=== PATIENT | female | born 1955 | race Caucasian/White ===

== ENCOUNTER 2017-04-18 10:40 | Emergency (ER) | payer SELFPAY ==
[2017-04-18 10:57] VITALS: TEMP 98.1
--- NOTE | 2017-04-18 11:04 | EDPHY ---
General Narrative: CHIEF COMPLAINT: Fall, left knee pain HISTORY OF PRESENT ILLNESS: Patient was in her home today when she turned around and tripped over a vacuum boat cleaner. She landed on her left knee in a flexed position. Sudden onset of severe pain. Deformity to the knee cap. No numbness or tingling. No difficulty bending the knee but difficulty straightening it. No head strike or loss of consciousness. No pain anywhere else. The pain is 10/10. She arrives by EMS as she is unable to ambulate. No other associated complaints or modifying factors. REVIEW OF SYSTEMS: Ten systems reviewed and are negative unless otherwise noted in the HPI PAST MEDICAL HISTORY: Previous orthopedic concerns PAST SURGICAL HISTORY: Orthopedic laparoscopy remotely SOCIAL HISTORY: Nonsmoker. Lives here independently. FAMILY HISTORY: Noncontributory EXAMINATION General Appearance: Alert, no distress Head: normocephalic, atraumatic Eyes: Pupils equal and round, no conjunctival pallor or injection ENT, Mouth: Mucous membranes moist Neck: Normal inspection, supple, non-tender Respiratory: Lungs are clear to auscultation Cardiovascular: Regular rate and rhythm. No murmur. Pulses intact distally with symmetric DP and PT pulses. Gastrointestinal: Abdomen is soft and nontender Back: non-tender, no bony abnormalities Neurological: A&O, nonfocal, strength is symmetric in the limbs. Unable to test strength in extension of the left knee as she has no extension retained. Skin: Warm and dry, no rash. No punctures or lacerations. There is tenting of the skin of the left knee but a remains closed. Extremities: Significant tenderness of the left knee with obvious deformity of the patella. There is no deficit distally. Unable to straighten or engage the patellar tendon. Flexion retain. Neurovascular intact distal to the obvious injury deformity. No pain at the proximal fibula or medial leg. Psychiatric: Mood and affect normal DIFFERENTIAL DIAGNOSES: Including but not limited to patellar fracture, patellar tendon rupture, femur fracture, tibial fracture, fibula fracture MDM: 10:50 a.m. Fall with obvious deformity of the patella and suspected patellar tendon rupture. Neurovascular intact. X-ray pending. 11:55 a.m. I have discussed the x-ray with Dr. Rizo. He has reviewed the film. He recommends straight leg immobilizer and crutches. He would like the patient to be seen in his office tomorrow or Sunday. The patient is agreeable to this. She will be placed in a splint and discharged home in stable condition neurovascular intact. Strict ER precautions discussed. She is comfortable this plan and discharged home stable condition. - Diagnostics Imaging Results: Imaging Impressions Knee X-Ray 04/18/17 10:50 Impression: Displaced, mildly comminuted transverse mid patellar fracture. - Objective Vital Signs: Initial Vital Signs Temperature (C) 98.1 F 04/18/17 10:53 Heart Rate 62 04/18/17 10:53 Respiratory Rate 20 04/18/17 10:53 Blood Pressure 130/76 H 04/18/17 10:53 O2 Sat (%) 97 04/18/17 10:53 O2 Delivery Mode Room Air Allergies/Adverse Reactions: mold Allergy (Verified 04/18/17 10:52) Penicillins Allergy (Verified 04/18/17 10:52) Home Medications: Medication Instructions Recorded ARMOUR THYROID 04/18/17 Amlodipine Besylate 04/18/17 Levothyroxine 04/18/17 Losartan Potassium 04/18/17 oxyCODONE HCL/ACETAMINOPHEN 1 each PO Q4-6PRN PRN #19 tablet 04/18/17 [Percocet 5-325 mg Tablet] Medications Given: Discontinued Medications Hydromorphone HCl (Dilaudid) 1 mg IVP EDNOW ONE Stop: 04/18/17 11:16 Last Admin: 04/18/17 11:17 Dose: 1 mg Departure - Departure Disposition: Home, Routine, Self-Care Clinical Impression: Patellar fracture Qualifiers: Encounter type: initial encounter Fracture type: closed Fracture morphology: transverse Fracture alignment: displaced Laterality: left Qualified Code(s): S82.032A - Displaced transverse fracture of left patella, initial encounter for closed fracture Condition: Good Instructions: Patellar Fracture (ED) Additional Instructions: 1. Straight leg immobilizer and crutches as discussed 2. Nonweightbearing to the left lower extremity 3. Follow up with Dr. Rizo tomorrow or Sunday as discussed 4. ED precautions as discussed Referrals: Patient,NotPresent [Primary Care Provider] - As per Instructions Dalton Rizo MD [Medical Doctor] - As per Instructions Prescriptions: oxyCODONE HCL/ACETAMINOPHEN [Percocet 5-325 mg Tablet] 1 each PO Q4-6PRN PRN # 19 tablet PRN Reason: Pain, Breakthrough
[2017-04-18] MEDS ORDERED: HYDROmorphONE/DILAUDID 1 MG/ML INJ IVP ONE (11:15)
[2017-04-18] MEDS ORDERED: ONDANSETRON 4 MG/2 ML VIAL ONE (12:40)
[2017-04-18] MEDS ORDERED: ONDANSETRON 4 MG/2 ML VIAL IVP ONE (12:46)
[2017-04-18 13:27] VITALS: BP 128/70; PULSE 68; RESP 18; O2SAT 92
== END 2017-04-18 14:29 | disposition home or self-care (01) ==
LOC: EDUNIT#
DX: S82.032A Displaced transverse fracture of left patella, initial encounter for closed fracture (principal); W01.0XXA Fall on same level from slipping, tripping and stumbling without subsequent striking against object, initial encounter; Y92.009 Unspecified place in unspecified non-institutional (private) residence as the place of occurrence of the external cause; Y99.8 Other external cause status; Y93.E5 Activity, floor mopping and cleaning
CPT/HCPCS: 96374; J1170; J2405

== ENCOUNTER 2017-04-23 12:51 | Day surgery (SDC) | payer SELFPAY ==
[2017-04-23] MEDS ORDERED: LIDOCAINE 1% 2 ML INJ ONE (13:06)
[2017-04-23] MEDS ORDERED: LIDOCAINE 1% 2 ML INJ ID PRN (13:16)
[2017-04-23] MEDS ORDERED: LR 1,000 ML IV ONE (13:16)
[2017-04-23 13:38] VITALS: RESP 16
[2017-04-23] MEDS ORDERED: BUPIVACAINE/EPI 0.5% 30 ML SDV ONE (13:46)
[2017-04-23] MEDS ORDERED: BUPIVACAINE 0.5% 30 ML SDV ONE (14:36)
[2017-04-23] MEDS ORDERED: fentaNYL 100 MCG/2 ML INJ ONE ×4 (14:53→17:51)
[2017-04-23] MEDS ORDERED: ROPIVACAINE HCL 150 MG/30 ML INJ ONE (14:53)
[2017-04-23] MEDS ORDERED: LIDOCAINE 2% 5 ML SDV ONE (15:02)
[2017-04-23] MEDS ORDERED: PROPOFOL/EMULSION 500 MG/50 ML BOTTLE IV ONE (15:37)
[2017-04-23] MEDS ORDERED: MIDAZOLAM 2 MG/2 ML VIAL ONE (15:37)
[2017-04-23] MEDS ORDERED: KETOROLAC 30 MG/1 ML SDV ONE (15:41)
[2017-04-23] MEDS ORDERED: VANCOMYCIN 1 GM VIAL ONE (15:48)
[2017-04-23] MEDS ORDERED: VANCOMYCIN HCL/NORMAL SALINE 250 ML IV ONE (16:00)
--- NOTE | 2017-04-23 16:03 | PDANEPAE ---
ANE Past Medical History - Cardiovascular History Hx Hypertension: Yes Hx Arrhythmias: No Hx Chest Pain: No Hx Coronary Artery / Peripheral Vascular Disease: No Hx CHF / Valvular Disease: No Hx Palpitations: No - Pulmonary History Hx COPD: No Hx Asthma/Reactive Airway Disease: No Hx Recent Upper Respiratory Infection: No Hx Oxygen in Use at Home: No Hx Sleep Apnea: No Sleep Apnea Screening Result - Last Documented: Negative - Neurologic History Hx Cerebrovascular Accident: No Hx Seizures: No Hx Dementia: No - Endocrine History Hx Diabetes: No Endocrine History Comment: hypothyroid - Renal History Hx Renal Disorders: No - Liver History Hx Hepatic Disorders: No - Neurological & Psychiatric Hx Hx Neurological and Psychiatric Disorders: No Neurological / Psychiatric History Comment: occ neck and back pain -due tension - Cancer History Hx Cancer: No - Congenital Disorder History Hx Congenital Disorders: No - GI History Hx Gastrointestinal Disorders: No - Other Health History Other Health History: L patellar fx-pain due to fall in home. - Chronic Pain History Chronic Pain: Yes (L knee) - Surgical History Prior Surgeries: tonsillectomy-child. 90% thyroid excised -age 12. breast augmentation-bilat. aortic aneurysm repaire-age 34 ANE Review of Systems Review of Systems: - Exercise capacity METS (RN): 4 METS ANE Patient History - Allergies Allergies/Adverse Reactions: mold Allergy (Verified 04/20/17 17:05) Other-Enter Comments Penicillins Allergy (Verified 04/20/17 17:05) Anaphylaxis - Home Medications Home Medications: ARMOUR THYROID 04/18/17 [Last Taken 04/22/17] Amlodipine Besylate 04/18/17 [Last Taken Unknown] Levothyroxine 04/18/17 [Last Taken 04/23/17] Losartan Potassium 04/18/17 [Last Taken 04/22/17] - NPO status NPO Since - Liquids (Date): 04/23/17 NPO Since - Liquids (Time): 08:00 NPO Since - Solids (Date): 04/22/17 NPO Since - Solids (Time): 22:00 - Smoking Hx Smoking Status: Never smoked ANE Labs/Vital Signs - Vital Signs Blood Pressure: 122/68 Heart Rate: 74 Respiratory Rate: 16 O2 Sat (%): 94 Height: 161.29 cm Weight: 79.379 kg ANE Physical Exam - Airway Mallampati Score: Class 1 Mouth exam: normal dental/mouth exam - Pulmonary Pulmonary: no respiratory distress, no rales or rhonchi, clear to auscultation - Cardiovascular Cardiovascular: regular rate and rhythym, no murmur, rub, or gallop, systolic murmur - ASA Status ASA Status: II ANE Anesthesia Plan Anesthesia Plan: GA w LMA Regional Anesthesia: inguinal crease FNB
[2017-04-23] MEDS ORDERED: PROMETHAZINE HCL 25 MG/ML INJ IVP PRN (16:36)
[2017-04-23] MEDS ORDERED: ONDANSETRON 4 MG/2 ML VIAL IVP PRN (16:36)
[2017-04-23] MEDS ORDERED: MEPERIDINE 25 MG/ML SYR IVP PRN (16:36)
[2017-04-23] MEDS ORDERED: DEXAMETHASONE 4 MG/ML VIAL IVP PRN (16:36)
[2017-04-23] MEDS ORDERED: ALBUTEROL 3 ML DEYVIAL IH PRN (16:36)
[2017-04-23] MEDS ORDERED: NALOXONE HCL 0.4 MG/ML INJ IVP PRN (16:36)
[2017-04-23] MEDS ORDERED: METOCLOPRAMIDE 10 MG/2 ML VIAL IVP PRN (16:36)
[2017-04-23] MEDS ORDERED: LR 500 ML IV PRN (16:36)
[2017-04-23] MEDS ORDERED: HYDROCODONE/APAP 5/325 TAB PO PRN (16:36)
[2017-04-23] MEDS ORDERED: ACETAMINOPHEN 500 MG TAB PO PRN (16:36)
[2017-04-23] MEDS ORDERED: OXYCODONE/APAP 5/325 TAB PO PRN (16:36)
[2017-04-23] MEDS ORDERED: oxyCODONE IR 5 MG TAB PO PRN (16:54)
[2017-04-23] MEDS: fentaNYL 100 MCG/2 ML INJ IVP PRN ×3 (17:13→17:52)
[2017-04-23] MEDS ORDERED: oxyCODONE IR 5 MG TAB ONE (17:44)
[2017-04-23 19:09] VITALS: BP 123/75; PULSE 79; TEMP 97.9
[2017-04-23 19:26] VITALS: O2SAT 88
--- NOTE | 2017-04-25 08:30 | POSTANESTH ---
Post Anesthetic Evaluation Cardiovascular Status: Normal, Stable Respiratory Status: Normal, Stable Level of Consciousness/Mental Status: Can Participate in Eval Pain Control: Adequate, Prn Tx Ordered Nausea/Vomiting Control: Adequate, Prn Tx Ordered Complications Possibly Related to Anesthesia: None Noted
--- NOTE | 2017-04-27 14:15 | GOP ---
[f rep st] OPERATIVE REPORT DATE OF OPERATION: 04/23/2017 SURGEON: Dalton Rizo MD [employer]ANCE ARTIST: James Montes, surgical tech, who was a medical necessity for the entirety of the case. PREOPERATIVE DIAGNOSIS: Left displaced patella fracture, closed. POSTOPERATIVE DIAGNOSIS: Left displaced patella fracture, closed. PROCEDURE PERFORMED: Open reduction, internal fixation of left patella fracture. FINDINGS: SPECIMENS: None. DESCRIPTION OF PROCEDURE: The patient was identified in the preanesthesia area, the left knee clearl y demarcated as the operative site with indelible marker. She was given 2 g of Ancef intravenously e n route to the operative suite. In the OR, general endotracheal anesthesia was administered. Attent ion was turned to the left knee, which was sterilely prepped and draped in the usual fashion. Approp riate time-out procedure was carried out. The limb was exsanguinated with an Esmarch bandage, the to urniquet inflated to 275 mmHg. A standard anterior midline incision was made. Thick subcutaneous fl aps were elevated. The patella was grossly transected, and a large hematoma was evacuated. The soft tissue was elevated off the patella dorsal surface, and the osseous surfaces were debrided with a cu rette. The fracture was then reduced into an anatomic position. Two crossing 0.62 mm K-wires perpen dicular to the fracture line were then placed. Using two 14-gauge Angiocaths, a 16-gauge cerclage wi re was then placed, placed under tension, around the patella. Intraoperative fluoroscopy confirmed a natomic reduction of the patella and appropriate positioning of the implants. The excess wires were then bent and trimmed to avoid prominence. These were recessed within the patellar tendon and bent f lush over the quadriceps tendon. The wound was then copiously irrigated, the medial and lateral reti nacula closed using 0 Vicryl sutures, and the subcutaneous tissue closed using 0 Vicryl, 2-0 Monocryl , the skin stapled. Margins were instilled with 30 cc of 0.5% Marcaine with epinephrine. A sterile compression dressing was applied. The patient was awakened, extubated, taken to recovery in good and stable condition. OPERATIVE INDICATIONS: The patient is a 61-year-old woman, who has sustained a mechanical fall acros s her left knee. She sustained a transverse proximal two thirds, distal one third fracture of her pa tella with separation of approximately 3 cm with disruption of her extensor mechanism. Requires oper ative intervention. I have outlined the surgical procedure, risks, benefits, and alternatives. She wished to proceed. Written consent was signed and placed in the patient's chart. TOTAL TOURNIQUET TIME: None. COMPLICATIONS: None. DISPOSITION: To the recovery room, then home. She will be in a straight leg immobilizer for 2 weeks , then begin progressive range of motion with therapy with increased range of motion of 30 degrees pe r week until full range of motion is achieved. /[id number]/MODL
== END 2017-04-23 20:33 | disposition home or self-care (01) ==
LOC: FSGY 12:51
PROVIDERS: ATTEND Orthopaedic Surgery
PROC: 0QSF04Z Reposition Left Patella with Internal Fixation Device, Open Approach (ICD-10-PCS; principal; 2017-04-23 16:00)
DX: S82.022A Displaced longitudinal fracture of left patella, initial encounter for closed fracture (principal); W19.XXXA Unspecified fall, initial encounter; Y92.099 Unspecified place in other non-institutional residence as the place of occurrence of the external cause
CPT/HCPCS: J0171; J1885; J2250; J2704; J2795; J3010; J3370

== ENCOUNTER → 2017-05-18 | Outpatient (CLI) | payer OTHER | LOC: BMCIMAGING 14:21 | PROVIDERS: ATTEND Physician Assistant | DX: S82.002D Unspecified fracture of left patella, subsequent encounter for closed fracture with routine healing (principal) ==

== ENCOUNTER → 2017-05-30 | Outpatient (CLI) | payer OTHER | LOC: BMCIMAGING 10:41 | PROVIDERS: ATTEND Physician Assistant | DX: S82.032D Displaced transverse fracture of left patella, subsequent encounter for closed fracture with routine healing (principal) ==

== ENCOUNTER → 2017-06-27 | Outpatient (CLI) | payer OTHER | LOC: BMCIMAGING 14:58 | PROVIDERS: ATTEND Orthopaedic Surgery | DX: S82.032D Displaced transverse fracture of left patella, subsequent encounter for closed fracture with routine healing (principal) ==

== ENCOUNTER → 2017-07-26 | Outpatient (CLI) | payer OTHER | LOC: BMCIMAGING 08:34 | PROVIDERS: ATTEND Orthopaedic Surgery | DX: S82.032D Displaced transverse fracture of left patella, subsequent encounter for closed fracture with routine healing (principal) ==